=== PATIENT | female | born 1975 | race Caucasian/White ===

== ENCOUNTER 2016-06-10 11:37 | Emergency (ER) | payer MEDICAID ==
[~2016-06-10] VITALS: Ht 152.4 cm; Wt 79.4 kg
[2016-06-10 11:47] VITALS: BP 136/77
--- NOTE | 2016-06-10 12:01 | NUR ---
PROVIDED WITH ICE PACK PER PT REQUEST
== END 2016-06-10 14:11 | disposition home or self-care (01) ==
LOC: ER 11:41
DX: S93.401A Sprain of unspecified ligament of right ankle, initial encounter (principal); S90.31XA Contusion of right foot, initial encounter; W01.0XXA Fall on same level from slipping, tripping and stumbling without subsequent striking against object, initial encounter; Y93.89 Activity, other specified; Y92.89 Other specified places as the place of occurrence of the external cause; Y99.8 Other external cause status
CPT/HCPCS: 73610-TC; 73630-TC; A4606; Z7610